=== PATIENT | male | born 2000 ===

== ENCOUNTER 2021-05-04 09:41 | Emergency (ER) | payer MEDICAID, OTHER ==
[~2021-05-04] VITALS: Ht 162.6 cm; Wt 94.3 kg
[2021-05-04 10:13] VITALS: BP 128/59
== END 2021-05-04 11:07 | disposition home or self-care (01) ==
LOC: ER 09:41
DX: S05.8X1A Other injuries of right eye and orbit, initial encounter (principal); X58.XXXA Exposure to other specified factors, initial encounter; Y93.89 Activity, other specified; Y92.89 Other specified places as the place of occurrence of the external cause; Y99.8 Other external cause status